=== PATIENT | male | born 1970 | race Caucasian/White ===

== ENCOUNTER → 2018-02-08 | Outpatient (CLI) | payer BC, OTHER ==
[~2018-02-08] MED LIST: IOPAMIDOL 76% 50 ML INFUS BTL 100 ML ONE
--- NOTE | 2018-02-08 16:29 | RADIOLOGY IMAGING REPORT ---
[place]AC[place] [facility] [place] NAME: Anthony Sterling : 1970 MR: [id number] V: [id number] EXAM DATE: ORDERING PHYSICIAN: NETTIE CARTER TECHNOLOGIST: Location: [facility] - [place] Patient: Anthony Sterling : 1970 Visit/Account:[id number] Date of Sevice: 02/08/2018 Study: CT scan of the brain without and with intravenous contrast. Contrast: 80ml isovue 370 Indication: Visual changes, short-term memory loss Comparison study:None Technique: Multiple axial images were obtained through the brain without and with the use of intraven ous contrast. One of the following dose optimization techniques was utilized in the performance of this exam: Autom ated exposure control; adjustment of the mA and/or kV according to the patient's size; or use of an i terative reconstruction technique. Specific details can be referenced in the facility's radiology C T exam operational policy. The examination demonstrates no evidence of acute intracranial hemorrhage. There is no evidence of ex tra-axial collection or hydrocephalus. There is a cavum septum pellucidum present. This is a normal variant. There is no abnormal density identified within the brain parenchyma. There is no evidence of disruption of the peripheral messer-white junction. There is no abnormal contrast enhancement identified. The bony structures are unremarkable. IMPRESSION:Unremarkable CT scan of the brain without and with contrast. Report Dictated By: Ramiro Damon at 02/08/2018 4:22 PM Report E-Signed By: Ramiro Damon at 02/08/2018 4:26 PM WSN:[id number]
== END ==
LOC: CT 00:24
PROVIDERS: ATTEND Family Medicine
DX: R41.3 Other amnesia (principal); R47.01 Aphasia; H53.9 Unspecified visual disturbance
CPT/HCPCS: 70470; Q9967